=== PATIENT | female | born 1955 | race Caucasian/White ===

== ENCOUNTER 2017-06-17 02:37 | Inpatient (IN) | payer MEDICAID ==
[2017-06-17] VITALS (8 sets, daily range): BP systolic 118–171; BP diastolic 60–86
[~2017-06-17] VITALS: Ht 162.6 cm; Wt 106.6 kg
[2017-06-17] MEDS ORDERED: METFORMIN HYDR500 M1 PO (03:31)
[2017-06-17] MEDS ORDERED: LISINOPRIL40 MG PO (03:32)
[2017-06-17] MEDS ORDERED: PRA40 PO (03:32)
[2017-06-17] MEDS ORDERED: MONTELUKAST SOD10 M1 PO (03:32)
[2017-06-17 03:57] LABS: CALCIUM 8.6 mg/dL (8.5-10.1); CARBON DIOXIDE 37.2 mmol/L (21-32); CHLORIDE SERUM 102 mmol/L (98-107); CREATININE SERUM 0.7 mg/dL (0.6-1.0); GFR1 > 60 mL/min; GLUCOSE SERUM 131 mg/dL (74-106); POTASSIUM SERUM 4.2 mmol/L (3.5-5.1); SODIUM SERUM 141 mmol/L (136-145)
[2017-06-17 04:03] LABS: RED CELL DISTRIBUTION WIDTH 14.4 % (11.5-14.5)
[2017-06-17 04:07] LABS: ALBUMIN 3.3 g/dL (3.4-5.0); ALKALINE PHOSPHATASE 71 U/L (46-116); ALT/SGPT 22 U/L (14-59); AST/SGOT 12 U/L (15-37); BILIRUBIN TOTAL 0.27 mg/dL (0.20-1.00); LIPASE 260 IU/L (73-393); TOTAL PROTEIN, SERUM 8.2 g/dL (6.4-8.2)
[2017-06-17 04:21] LABS: BASOPHIL % 2.5 % (0-2); PLATELET COUNT 288 x10^3mcL (130-400)
[2017-06-17 05:39] LABS: MAGNESIUM 1.9 mg/dL (1.8-2.4); PHOSPHOROUS 4.6 mg/dL (2.5-4.9)
[2017-06-17 05:48] LABS: CHOLESTEROL/HDL RATIO 6.1; T3 TOTAL 1.26 ng/mL
[2017-06-17 05:49] LABS: FREE T4 0.92 ng/dL (0.76-1.46); FREE THYROXINE INDEX 2.7 ug/dL (1.4-4.5); T4(THYROXINE) 7.6 ug/dL (4.7-13.3)
[2017-06-17 17:16] LABS: microscopic required? NO
[2017-06-17 17:24] LABS: urine erythrocyte NEGATIVE (NEGATIVE)
[2017-06-17 17:33] LABS: AMPHETAMINE QUAL UR NONE DETECTED (NEG <=1000)
[2017-06-18 04:51] VITALS: BP 114/54
[2017-06-18 06:51] LABS: BASOPHIL % 0.1 % (0-2); PLATELET COUNT 267 x10^3mcL (130-400)
[2017-06-18 07:02] LABS: RED CELL DISTRIBUTION WIDTH 15.5 % (11.5-14.5)
[2017-06-18 07:37] LABS: CALCIUM 8.4 mg/dL (8.5-10.1); CARBON DIOXIDE 29.4 mmol/L (21-32); CHLORIDE SERUM 99 mmol/L (98-107); CREATININE SERUM 0.7 mg/dL (0.6-1.0); GFR1 > 60 mL/min; GLUCOSE SERUM 257 mg/dL (74-106); MAGNESIUM 1.8 mg/dL (1.8-2.4); POTASSIUM SERUM 4.6 mmol/L (3.5-5.1); SODIUM SERUM 135 mmol/L (136-145)
[2017-06-18 09:33] VITALS: BP 129/61
[2017-06-18 13:54] VITALS: BP 120/68
[2017-06-18 16:11] VITALS: BP 127/61
[2017-06-18 20:35] VITALS: BP 142/68
[2017-06-19 05:35] VITALS: BP 118/61
[2017-06-19 06:35] LABS: BASOPHIL % 0.2 % (0-2); PLATELET COUNT 235 x10^3mcL (130-400)
[2017-06-19 06:42] LABS: CALCIUM 8.1 mg/dL (8.5-10.1); CARBON DIOXIDE 31.5 mmol/L (21-32); CHLORIDE SERUM 101 mmol/L (98-107); CREATININE SERUM 0.7 mg/dL (0.6-1.0); GFR1 > 60 mL/min; GLUCOSE SERUM 204 mg/dL (74-106); POTASSIUM SERUM 4.1 mmol/L (3.5-5.1); SODIUM SERUM 139 mmol/L (136-145)
[2017-06-19 06:56] LABS: RED CELL DISTRIBUTION WIDTH 15.4 % (11.5-14.5)
[2017-06-19 10:01] VITALS: BP 131/66
[2017-06-19 13:09] VITALS: BP 115/64
[2017-06-19 17:48] VITALS: BP 143/67
[2017-06-19 19:57] VITALS: BP 158/72
[2017-06-20 05:33] VITALS: BP 134/64
[2017-06-20 06:33] LABS: BASOPHIL % 0.6 % (0-2); PLATELET COUNT 247 x10^3mcL (130-400)
[2017-06-20 06:52] LABS: RED CELL DISTRIBUTION WIDTH 15.8 % (11.5-14.5)
[2017-06-20 07:04] LABS: CALCIUM 8.2 mg/dL (8.5-10.1); CARBON DIOXIDE 33.6 mmol/L (21-32); CHLORIDE SERUM 99 mmol/L (98-107); CREATININE SERUM 0.7 mg/dL (0.6-1.0); GFR1 > 60 mL/min; GLUCOSE SERUM 199 mg/dL (74-106); POTASSIUM SERUM 4.5 mmol/L (3.5-5.1); SODIUM SERUM 137 mmol/L (136-145)
[2017-06-20 09:33] VITALS: BP 144/76
[2017-06-20] MEDS ORDERED: LEVAQUIN750 MG PO (10:56)
[2017-06-20] MEDS ORDERED: CLEOCIN HCL300 MG PO (10:57)
[2017-06-20 11:04] VITALS: BP 144/76
== END 2017-06-20 16:20 | disposition home or self-care (01) | DRG 137 ==
LOC: ED 02:37 → EDBEDREQSVC 05:02 → EDBEDREQ 05:02 → DU 05:09 → EDBEDREQ 05:11 → DU 05:34 → MU 06-19 17:06
PROVIDERS: Emergency Medicine; Family Medicine; ADMIT Family Medicine
DX: J69.0 Pneumonitis due to inhalation of food and vomit (principal); N17.0 Acute kidney failure with tubular necrosis; Z68.41 Body mass index [BMI] 40.0-44.9, adult; E11.65 Type 2 diabetes mellitus with hyperglycemia; E44.1 Mild protein-calorie malnutrition; J44.1 Chronic obstructive pulmonary disease with (acute) exacerbation; K21.9 Gastro-esophageal reflux disease without esophagitis; I10 Essential (primary) hypertension; M19.90 Unspecified osteoarthritis, unspecified site; E78.5 Hyperlipidemia, unspecified; F17.210 Nicotine dependence, cigarettes, uncomplicated; E66.01 Morbid (severe) obesity due to excess calories; Z79.84 Long term (current) use of oral hypoglycemic drugs
CPT/HCPCS: 36600; 82962; 83880; 84439; 94150; J1720; J1956; J2920; J2930; J3490; J7030; J7613; J7620; J7626; J7644; Q0092